=== PATIENT | male | born 1975 | race Caucasian/White ===

== ENCOUNTER → 2022-11-14 | Outpatient (CLI) | payer OTHER | LOC: MHCPAIN 08:55 | DX: M48.061 Spinal stenosis, lumbar region without neurogenic claudication (principal); M47.817 Spondylosis without myelopathy or radiculopathy, lumbosacral region; M54.50 Low back pain, unspecified; M54.2 Cervicalgia; I10 Essential (primary) hypertension | CPT/HCPCS: G0463 ==